=== PATIENT | male | born 1965 | race Caucasian/White ===

== ENCOUNTER → 2016-08-07 | Outpatient (CLI) | payer OTHER ==
[2016-08-07 06:59] LABS: MEAN CORPUSCULAR HEMOGLOBIN 31.3 pg (27.0-33.0); MEAN CORPUSCULAR HGB CONC 35.4 g/dl (32.0-36.5); MEAN CORPUSCULAR VOLUME 88.3 fl (80.0-96.0); RED CELL DISTRIBUTION WIDTH 12.5 % (11.5-14.5); WHITE BLOOD COUNT 6.2 K/mm3 (4.0-10.0)
[2016-08-07 07:26] LABS: ALBUMIN 4.1 GM/DL (3.2-5.2); ALBUMIN/GLOBULIN RATIO 1.14 (1.00-1.93); ALKALINE PHOSPHATASE 71 U/L (45-117); ALT/SGPT 88 U/L (12-78); ANION GAP 7 MEQ/L (8-16); AST/SGOT 61 U/L (15-37); BILIRUBIN,TOTAL 0.8 MG/DL (0.2-1.0); BLOOD UREA NITROGEN 13 MG/DL (7-18); CALCIUM LEVEL 8.7 MG/DL (8.5-10.1); CARBON DIOXIDE LEVEL 29 MEQ/L (21-32); CHLORIDE LEVEL 102 MEQ/L (98-107); CHOLESTEROL LEVEL 162 MG/DL (<200); CREATININE FOR GFR 1.13 MG/DL (0.70-1.30); GLOMERULAR FILTRATION RATE > 60.0 (>56); GLUCOSE, FASTING 107 MG/DL (70-105); SODIUM LEVEL 138 MEQ/L (136-145); TOTAL PROTEIN 7.7 GM/DL (6.4-8.2); TRIGLYCERIDES LEVEL 257 MG/DL (<150)
== END ==
LOC: M LAB 06:37
PROVIDERS: ATTEND Nurse Practitioner Family
DX: E78.5 Hyperlipidemia, unspecified (principal)

== ENCOUNTER → 2017-03-11 | Outpatient (CLI) | payer OTHER ==
[2017-03-11 07:11] LABS: HEMATOCRIT 48.9 % (42.0-52.0); HEMOGLOBIN 16.8 g/dl (14.0-18.0); MEAN CORPUSCULAR HEMOGLOBIN 29.7 pg (27.0-33.0); MEAN CORPUSCULAR HGB CONC 34.4 g/dl (32.0-36.5); MEAN CORPUSCULAR VOLUME 86.4 fl (80.0-96.0); PLATELET COUNT, AUTOMATED 215 10^3/uL (150-450); RED BLOOD COUNT 5.66 10^6/uL (4.30-6.10); RED CELL DISTRIBUTION WIDTH 12.6 % (11.5-14.5)
[2017-03-11 07:36] LABS: ALBUMIN 4.1 GM/DL (3.2-5.2); ALBUMIN/GLOBULIN RATIO 1.08 (1.00-1.93); ALKALINE PHOSPHATASE 60 U/L (45-117); ALT/SGPT 92 U/L (12-78); ANION GAP 5 MEQ/L (8-16); AST/SGOT 52 U/L (7-37); BILIRUBIN,DIRECT 0.1 MG/DL (0.0-0.2); BILIRUBIN,TOTAL 0.6 MG/DL (0.2-1.0); BLOOD UREA NITROGEN 15 MG/DL (7-18); CARBON DIOXIDE LEVEL 31 MEQ/L (21-32); CHLORIDE LEVEL 103 MEQ/L (98-107); CHOLESTEROL LEVEL 169 MG/DL (<200); CREATININE FOR GFR 1.18 MG/DL (0.70-1.30); GLOMERULAR FILTRATION RATE > 60.0 (>56); GLUCOSE, FASTING 109 MG/DL (70-105); HDL CHOLESTEROL 34 MG/DL (>40); LDL CHOLESTEROL 83.8 MG/DL (<100); NON-HDL-C 135 MG/DL; POTASSIUM SERUM 4.2 MEQ/L (3.5-5.1); SODIUM LEVEL 139 MEQ/L (136-145); TOTAL PROTEIN 7.9 GM/DL (6.4-8.2); TRIGLYCERIDES LEVEL 256 MG/DL (<150); URIC ACID 6.6 MG/DL (3.5-7.2)
== END ==
LOC: M LAB 06:39
DX: I10 Essential (primary) hypertension (principal); R79.89 Other specified abnormal findings of blood chemistry; M10.9 Gout, unspecified
CPT/HCPCS: 84550

== ENCOUNTER 2017-05-12 07:10 | Emergency (ER) | payer OTHER | END 2017-05-12 08:50 | disposition home or self-care (01) | LOC: M ED 07:10 | DX: S46.812A Strain of other muscles, fascia and tendons at shoulder and upper arm level, left arm, initial encounter (principal); X58.XXXA Exposure to other specified factors, initial encounter; Y92.89 Other specified places as the place of occurrence of the external cause; R20.2 Paresthesia of skin; M10.9 Gout, unspecified; I10 Essential (primary) hypertension; E78.00 Pure hypercholesterolemia, unspecified; Z79.899 Other long term (current) drug therapy | CPT/HCPCS: 93005 ==

== ENCOUNTER → 2017-10-15 | Outpatient (REF) | payer OTHER ==
[2017-10-15 14:48] LABS: ANION GAP 8 MEQ/L (8-16); AST/SGOT 42 U/L (7-37); BLOOD UREA NITROGEN 11 MG/DL (7-18); CALCIUM LEVEL 8.9 MG/DL (8.5-10.1); CARBON DIOXIDE LEVEL 24 MEQ/L (21-32); CHLORIDE LEVEL 107 MEQ/L (98-107); CREATININE FOR GFR 0.96 MG/DL (0.70-1.30); GLOMERULAR FILTRATION RATE > 60.0 (>56); GLUCOSE, FASTING 107 MG/DL (70-100); POTASSIUM SERUM 4.1 MEQ/L (3.5-5.1); SODIUM LEVEL 139 MEQ/L (136-145)
[2017-10-15 14:49] LABS: ALBUMIN 3.8 GM/DL (3.2-5.2); ALBUMIN/GLOBULIN RATIO 1.09 (1.00-1.93); ALKALINE PHOSPHATASE 74 U/L (45-117); ALT/SGPT 75 U/L (12-78); BILIRUBIN,TOTAL 0.7 MG/DL (0.2-1.0); CHOLESTEROL LEVEL 167 MG/DL (<200); CHOLESTEROL RISK RATIO 5.758 (<5); HDL CHOLESTEROL 29 MG/DL (>40); NON-HDL-C 138 MG/DL; PSA SCREENING 1.47 NG/ML (< 4.0); TOTAL PROTEIN 7.3 GM/DL (6.4-8.2); TRIGLYCERIDES LEVEL 240 MG/DL (<150)
[2017-10-15 19:44] LABS: VITAMIN B12 LEVEL 601 PG/ML
[2017-10-16 11:02] LABS: HEPATITIS C VIRUS ABY INDEX 0.1 INDEX (<0.8)
== END ==
LOC: M LAB REF 12:51
DX: R79.89 Other specified abnormal findings of blood chemistry (principal); E78.5 Hyperlipidemia, unspecified; Z12.5 Encounter for screening for malignant neoplasm of prostate
CPT/HCPCS: 82746

== ENCOUNTER → 2018-05-17 | Outpatient (REF) | payer OTHER ==
[~2018-05-17] MED LIST: ALLO100T; ATOR40TA75; LISI10TA4; PRED20TA PO; ROBA500T PO
[2018-05-17 11:38] LABS: INFLUENZA A AMPLIFICATION POSITIVE (NEGATIVE); INFLUENZA B AMPLIFICATION NEGATIVE (NEGATIVE)
== END ==
LOC: M LAB REF 10:30
PROVIDERS: ATTEND Physician Assistant Medical
DX: Z11.59 Encounter for screening for other viral diseases (principal)

== ENCOUNTER 2018-10-05 01:10 | Emergency (ER) | payer OTHER ==
[~2018-10-05] VITALS: Ht 177.8 cm; Wt 118.2 kg
[2018-10-05 01:53] LABS: HEMATOCRIT 47.9 % (42.0-52.0); HEMOGLOBIN 16.5 g/dl (13.5-17.5); MEAN CORPUSCULAR HGB CONC 34.4 g/dl (32.0-36.5); MEAN CORPUSCULAR VOLUME 89.9 fl (80.0-96.0); PLATELET COUNT, AUTOMATED 176 10^3/uL (150-450); RED BLOOD COUNT 5.33 10^6/uL (4.30-6.10); WHITE BLOOD COUNT 5.7 10^3/uL (4.0-10.0)
[2018-10-05 02:01] LABS: APPEARANCE, URINE HAZY (CLEAR); BACTERIA, URINE AUTO NEGATIVE (NEGATIVE); BILIRUBIN, URINE AUTO NEGATIVE (NEGATIVE); BLOOD, URINE BLOOD 3+ (NEGATIVE); COLOR, URINE YELLOW (YELLOW); GLUCOSE, URINE (UA) AUTO NEGATIVE (NEGATIVE); KETONE, URINE AUTO NEGATIVE (NEGATIVE); LEUKOCYTE ESTERASE, URINE AUTO NEGATIVE (NEGATIVE); MUCUS, URINE SMALL (NEGATIVE); NITRITE, URINE AUTO NEGATIVE (NEGATIVE); PROTEIN, URINE AUTO NEGATIVE (NEGATIVE); RBC, URINE AUTO TNTC /HPF (0-3); SQUAMOUS EPITHELIAL CELL UR AU 0 /HPF (0-6); UROBILINOGEN, URINE AUTO 0.2 mg/dL (0.0-2.0); WBC, URINE AUTO 1 /HPF (0-3)
[2018-10-05 02:23] LABS: ALBUMIN 3.9 GM/DL (3.2-5.2); ALT/SGPT 72 U/L (12-78); BILIRUBIN,TOTAL 0.3 MG/DL (0.2-1.0); BLOOD UREA NITROGEN 15 MG/DL (7-18); CALCIUM LEVEL 8.8 MG/DL (8.5-10.1); CARBON DIOXIDE LEVEL 25 MEQ/L (21-32); CHLORIDE LEVEL 107 MEQ/L (98-107); CREATININE FOR GFR 1.26 MG/DL (0.70-1.30); GLOMERULAR FILTRATION RATE > 60.0 (>56); GLUCOSE, FASTING 146 MG/DL (70-100); POTASSIUM SERUM 3.7 MEQ/L (3.5-5.1); SODIUM LEVEL 140 MEQ/L (136-145); TOTAL PROTEIN 7.6 GM/DL (6.4-8.2)
--- NOTE | 2018-10-05 04:50 | REPVR ---
EXAM: CT Abdomen and Pelvis Without Contrast EXAM DATE/TIME: 10/05/2018 2:16 AM CLINICAL HISTORY: 53 years old, male; Abdominal pain; Flank; Right; Additional info: Right flank/groin pain with hematuria TECHNIQUE: Imaging protocol: Axial computed tomography images of the abdomen and pelvis without contrast. Coronal and sagittal reformatted images were created and reviewed. Radiation optimization: All CT scans at this facility use at least one of these dose optimization techniques: automated exposure control; mA and/or kV adjustment per patient size (includes targeted exams where dose is matched to clinical indication); or iterative reconstruction. COMPARISON: GALLBLADDER US 07/23/2015 8:14 AM FINDINGS: Lungs: The visualized portions of the lung bases are normal. Liver: There are no focal liver lesions present. Gallbladder and bile ducts: The gallbladder is contracted, limiting its assessment. No definite stones identified. There is no biliary ductal dilation. Pancreas: The pancreas is normal with no ductal dilation. Spleen: The spleen is normal. Adrenals: The adrenal glands are normal. Kidneys and ureters: There is mild right hydronephrosis. There is a 4 mm distal right ureter stone within 1-2 cm of the bladder, which seems to be causing obstruction. There is right-sided landon-ureteral stranding. No significant perinephric stranding is seen. The left ureter appears normal with no stones or hydronephrosis. Stomach and bowel: Mild diverticulosis is present in the distal colon. There is no dilation or thickening of the colon. The small bowel appears unremarkable. Appendix: A normal appendix is identified. Intraperitoneal space: There is no evidence of free intraperitoneal or pelvic fluid. There is no free intraperitoneal air. Vasculature: The aorta demonstrates mild atherosclerotic calcification. Lymph nodes: No lymphadenopathy is seen. Bladder: There is a distortion of the bladder anteriorly on the right side, and extension of the bladder into a right inguinal hernia. There is mild thickening of the bladder wall anteriorly and toward the right side. The portion of the bladder extending into the hernia sac is mostly collapsed, limiting assessment of the wall thickness in that portion. Reproductive: The prostate gland and seminal vesicles are normal. Bones/joints: No suspicious osseous lesions. No acute fractures or dislocations. Relatively high density of the osseous structures diffusely is noted, possibly a mild diffuse osseous sclerosis. Soft tissues: There is a right inguinal hernia which contains a portion of the bladder. See Bladder findings. IMPRESSION: 1. Mild right-sided hydronephrosis with an obstructing 4 mm distal right ureter stone. 2. Right inguinal hernia with herniation of the bladder into the hernia sac. Mild thickening of the bladder wall anteriorly on the right side. 3. Relatively high density of the osseous structures diffusely, raising a possibility of metabolic bone disease. Electronically signed by: Divine Adames On 10/05/2018 04:50:08 AM
[2018-10-05] MEDS ORDERED: KETOROLAC 30 MG/ML VIAL (J1885) IV ONE (06:00)
[2018-10-05] MEDS ORDERED: TAMSULOSIN 0.4 MG CAP PO ONE (06:00)
[2018-10-05] MEDS ORDERED: NS 1,000 ML IV ONE (06:00)
[2018-10-05] MEDS ORDERED: FLOM0.4C39 PO (06:00)
[2018-10-05 07:04] VITALS: BP 156/99
--- NOTE | 2018-10-11 19:32 | ED PDOC ---
Post-Departure Follow-Up certified letter sent to pt re formal read of ct - see report - ?? metastatic l esion. please obtain pcp name and have pt fu there. if no pcp arrange fu at [facility] and fax report there Bj Giron MD Oct 11, 2018 19:32
== END 2018-10-05 07:13 | disposition home or self-care (01) ==
LOC: M ED 01:10
DX: N20.1 Calculus of ureter (principal); K40.30 Unilateral inguinal hernia, with obstruction, without gangrene, not specified as recurrent; I10 Essential (primary) hypertension; Z79.899 Other long term (current) drug therapy
CPT/HCPCS: 74176; 80053; 81001; 85027; 96374; 99284; J1885

== ENCOUNTER → 2018-11-17 | Outpatient (REF) | payer OTHER ==
[~2018-11-17] MED LIST changes: +FLOM0.4C39 PO
[2018-11-17 17:48] LABS: INR 1.01
[2018-11-17 17:50] LABS: BASO % 0.3 % (0.0-1.0); EOS # 0.1 10^3/uL (0.0-0.5); EOS % 2.2 % (0.0-3.0); HEMATOCRIT 45.9 % (42.0-52.0); HEMOGLOBIN 15.7 g/dl (13.5-17.5); LYMPH % 34.2 % (24.0-44.0); MEAN CORPUSCULAR HEMOGLOBIN 29.7 pg (27.0-33.0); MEAN CORPUSCULAR HGB CONC 34.2 g/dl (32.0-36.5); MEAN CORPUSCULAR VOLUME 86.9 fl (80.0-96.0); MONO # 0.7 10^3/uL (0.0-0.8); MONO % 10.9 % (0.0-5.0); NEUTROPHILS # 3.1 10^3/uL (1.5-8.5); NEUTROPHILS % 52.1 % (36.0-66.0); PLATELET COUNT, AUTOMATED 216 10^3/uL (150-450); RED BLOOD COUNT 5.28 10^6/uL (4.30-6.10)
[2018-11-17 17:51] LABS: ALBUMIN 4.4 GM/DL (3.2-5.2); ALT/SGPT 70 U/L (12-78); BILIRUBIN,TOTAL 0.5 MG/DL (0.2-1.0); BLOOD UREA NITROGEN 12 MG/DL (7-18); CALCIUM LEVEL 9.1 MG/DL (8.5-10.1); CARBON DIOXIDE LEVEL 23 MEQ/L (21-32); CHLORIDE LEVEL 105 MEQ/L (98-107); CHOLESTEROL LEVEL 256 MG/DL (<200); CREATININE FOR GFR 1.17 MG/DL (0.70-1.30); GLOMERULAR FILTRATION RATE > 60.0 (>56); GLUCOSE, FASTING 91 MG/DL (70-100); HDL CHOLESTEROL 32 MG/DL (>40); LDL CHOLESTEROL 155 MG/DL (<100); NON-HDL-C 224 MG/DL; POTASSIUM SERUM 3.9 MEQ/L (3.5-5.1); SODIUM LEVEL 138 MEQ/L (136-145); TOTAL PROTEIN 7.7 GM/DL (6.4-8.2); TRIGLYCERIDES LEVEL 347 MG/DL (<150); URIC ACID 7.8 MG/DL (3.5-7.2)
== END ==
LOC: M LAB REF 16:32
PROVIDERS: ATTEND Nurse Practitioner Adult Health
DX: Z01.818 Encounter for other preprocedural examination (principal); Z12.5 Encounter for screening for malignant neoplasm of prostate; M10.9 Gout, unspecified
CPT/HCPCS: 80053; 80061; 84550; 85025; 85610; G0103

== ENCOUNTER 2018-12-14 12:23 | Day surgery (SDC) | payer OTHER ==
[~2018-12-14] VITALS: Ht 177.8 cm; Wt 109.0 kg
[~2018-12-14 12:23] MED LIST changes: -ALLO100T; +ALLO100T PO; +ATOR1TAB19 PO; +LIDOCAINE 1% MDV 20ML VIAL SQ PRN; -LISI10TA4; +LISI10TA4 PO; +LR 1,000 ML IV ONE; +SM P99TA PO
[2018-12-14] MEDS ORDERED: LIDOCAINE 2% INJ 100 MG/5 ML SDV (FOR ANES.) As Ordered ONE (12:58)
[2018-12-14] MEDS ORDERED: PROPOFOL 200 MG/20 ML VIAL As Ordered ONE (12:58)
[2018-12-14] MEDS ORDERED: ROCURONIUM BROMIDE 50 MG/5 ML VIAL As Ordered ONE ×2 (12:58→15:35)
[2018-12-14] MEDS ORDERED: PRED10PA PO (13:33)
[2018-12-14] MEDS ORDERED: MIDAZOLAM INJ 2 MG/2 ML VIAL (J2250) As Ordered ONE (13:55)
[2018-12-14] MEDS ORDERED: dexameTHASONE 4 MG/ML 1ML VIAL (J1100) As Ordered ONE (13:55)
[2018-12-14] MEDS ORDERED: fentaNYL 250 MCG/5 ML INJECTION (J3010) As Ordered ONE (13:55)
[2018-12-14] MEDS ORDERED: BUPIVACAINE HCL 0.25% 30 ML VIAL As Ordered ONE (14:37)
[2018-12-14] MEDS ORDERED: ACETAMINOPHEN 1000MG 100ML IV BTL (OFIRMEV) (J0131 PER 10MG) As Ordered ONE (15:52)
[2018-12-14] MEDS ORDERED: ONDANSETRON 4MG/2ML VIAL (J2405) As Ordered ONE ×2 (15:52→17:58)
[2018-12-14] MEDS ORDERED: KETOROLAC 60 MG/2 ML VIAL (J1885) As Ordered ONE (15:52)
[2018-12-14] MEDS ORDERED: SUGAMMADEX SODIUM 500 MG/5 ML VIAL (BRIDION) As Ordered ONE (17:05)
[2018-12-14] MEDS ORDERED: NORC1TAB7 PO (17:35)
[2018-12-14] MEDS ORDERED: NORCO, ANEXSIA 5/325MG TABLET (HYDROcodone/ACETAMINOPHEN) As Ordered ONE (17:57)
[2018-12-14] MEDS ORDERED: NORCO, ANEXSIA 5/325MG TABLET (HYDROcodone/ACETAMINOPHEN) PO PRN ×2 (18:00→18:15)
[2018-12-14] MEDS ORDERED: ONDANSETRON 4MG/2ML VIAL (J2405) IV PRN (18:00)
[2018-12-14] MEDS ORDERED: fentaNYL 100 MCG/2 ML INJECTION (J3010) IV PRN (18:00)
[2018-12-14] MEDS ORDERED: ACETAMINOPHEN TAB 650MG DOSE (2X325MG) PO PRN ×2 (18:15)
[2018-12-14] MEDS ORDERED: IBUPROFEN 600 MG TAB PO PRN (18:15)
[2018-12-14] MEDS ORDERED: METOCLOPRAMIDE INJ 10MG/2ML VIAL (J2765) As Ordered ONE (18:20)
[2018-12-14] MEDS ORDERED: METOCLOPRAMIDE INJ 10MG/2ML VIAL (J2765) IV SCH (18:30)
[2018-12-14 18:55] VITALS: BP 135/86
--- NOTE | 2018-12-15 10:12 | RO ---
DATE OF PROCEDURE: 12/14/2018 PREOPERATIVE DIAGNOSIS: Right inguinal hernia. POSTOPERATIVE DIAGNOSIS: Direct right inguinal hernia. PROCEDURE PERFORMED: Robotic-assisted laparoscopic right inguinal herniorrhaphy with mesh. The mesh utilized was a Bard right-sided large 3DMax light mesh, reference code [id number], lot number [id number]. SURGEON: Dr. Santana ASSISTANT [employer] COACH: ANESTHESIA: General. INDICATIONS FOR THE PROCEDURE: Patient is a 53-year-old man who noted a small bulge in the right inguinal area. He underwent evaluation with a CT scan, which showed part of the bladder protruding into his right inguinal hernia. He is now for a right inguinal herniorrhaphy. OPERATIVE PROCEDURE: The patient was brought to the operating room and placed supine on the operating table. He was placed under general endotracheal anesthesia. The patient's abdomen and groins were prepped and draped in a sterile fashion. A short transverse incision was made approximately 5 cm above the umbilicus and slightly to the left of the midline. The Veress needle was inserted and after a positive hanging drop test the abdomen was insufflated with carbon dioxide gas without difficulty. An 8 mm robotic Visiport was placed over a 5 mm scope and advanced through the abdominal wall without difficulty. Initial examination showed normal-appearing liver and gallbladder. Visualized loops of the small and large bowel appeared normal. There was a small right inguinal hernia defect identified and no evidence of a hernia on the left. The patient was tilted to a Trendelenburg position. A second 8 mm port was placed approximately 8-10 cm lateral on the left side of the abdomen and a third 8 mm port was placed approximately 8-10 cm to the right of the initial port. The [employer] patient cart was brought into position and the endoscope port was docked. Targeting took place and the additional ports were then docked as well. Cauterizing scissors were placed in the right-sided port and a bipolar forceps was placed in the left. I then moved to the control console to proceed with the robotic portion of the procedure. Inspection more closely revealed that there was a large amount of fibrofatty tissue and possibly a portion of the bladder that were herniated into what appeared to be actually a moderately large probably direct hernia defect on the right. An arcuate incision was made in the peritoneum of the anterior abdominal wall above the hernia. A peritoneal flap was then developed using a combination of blunt and cautery dissection. This included a very thin layer of underlying fascia. The hernia was reduced by traction and noted to have some adhesions up into the hernia. It was necessary to lyse some attachments until the hernia sac would remain reduced back into the abdomen. With further dissection the spermatic cord structures were identified coursing to the external ring, which appeared to be slightly lateral to the hernia defect consistent with the hernia being a direct hernia. The peritoneal reflection was dissected away from the spermatic vessels. In the course of doing so an opening was created through the peritoneum and it was noted for later closure. Once the peritoneal flap had been adequately dissected, a Bard 3DMax light mesh was selected. This was for the right side and a large mesh. This was inserted into the abdomen and placed into the preperitoneal space. This appeared to nicely cover the area of interest. Two sutures of #2-0 Vicryl were placed at the inferior medial end of the mesh suturing this to the underlying fascia. Another single suture was placed in the outer upper aspect of the mesh to tack this in place. I would note that several fragments of fibrofatty tissue had been removed from the preperitoneal space to allow the mesh to lie flat against the fascia more closely. These were placed intraperitoneally for later removal. The peritoneal flap was then closed with a running #2-0 V-Loc suture. I then addressed the opening through the peritoneum and this was closed with a running suture of #2-0 Vicryl. An Endopouch was inserted and the fragments of fibrofatty tissue were placed within the pouch for removal. The patient was then returned to a flat position. The robotic instruments were removed. I returned to the patient's side. The abdomen was deflated and the trocars were all removed. The Endopouch was removed through the right-sided trocar site after withdrawing the fibrofatty tissue from within using a Sindi clamp. The incisions were closed with buried Vicryl sutures. 0.25% Marcaine was infiltrated about all of the trocar sites and Steri-Strips were applied followed by light dressings. The patient tolerated the procedure well without apparent complication. He was awakened in the operating room, extubated and moved to the recovery room in stable condition.
== END 2018-12-14 19:15 | disposition home or self-care (01) ==
LOC: M SDC 12:23
PROVIDERS: ATTEND Surgery
DX: K40.90 Unilateral inguinal hernia, without obstruction or gangrene, not specified as recurrent (principal); G47.30 Sleep apnea, unspecified; I10 Essential (primary) hypertension; E78.5 Hyperlipidemia, unspecified; Z79.899 Other long term (current) drug therapy
CPT/HCPCS: 49650; C1781; J0131; J1100; J1885; J2250; J2405; J2765; J3010

== ENCOUNTER → 2019-01-05 | Outpatient (CLI) | payer OTHER ==
[~2019-01-05] MED LIST changes: -LIDOCAINE 1% MDV 20ML VIAL SQ PRN; -LR 1,000 ML IV ONE; +NORC1TAB7 PO; +PRED10PA PO
--- NOTE | 2019-01-05 16:12 | REP ---
Clinical: Groin pain. Technique: Real time ultrasound examination using linear high frequency transducer. Findings: The patient gives a history of right inguinal hernia repair. Directed ultrasound examination of the right groin at the point of maximal tenderness demonstrates an ovoid complex multi septated avascular collection measuring 4.2 x 2.4 x 3.3 cm. No residual hernia identified. Impression: Complex ovoid collection at the site of prior surgery may represent hematoma or seroma. Clinical correlation and follow up is recommended. Electronically Signed by Jesus Ac MD 01/05/2019 04:04 P
== END ==
LOC: M RAD 14:38
PROVIDERS: ATTEND Surgery
DX: R10.31 Right lower quadrant pain (principal); R60.0 Localized edema

== ENCOUNTER → 2019-12-12 | Outpatient (REF) | payer OTHER ==
[2019-12-12 18:03] LABS: BASO % 0.6 % (0.0-1.0); EOS # 0.1 10^3/uL (0.0-0.5); EOS % 1.6 % (0.0-3.0); HEMATOCRIT 51.2 % (42.0-52.0); HEMOGLOBIN 17.2 g/dl (13.5-17.5); LYMPH # 1.9 10^3/uL (1.5-5.0); LYMPH % 37.6 % (24.0-44.0); MEAN CORPUSCULAR HEMOGLOBIN 29.9 pg (27.0-33.0); MEAN CORPUSCULAR HGB CONC 33.6 g/dl (32.0-36.5); MONO # 0.7 10^3/uL (0.0-0.8); MONO % 13.6 % (0.0-5.0); NEUTROPHILS # 2.4 10^3/uL (1.5-8.5); NEUTROPHILS % 46.2 % (36.0-66.0); PLATELET COUNT, AUTOMATED 237 10^3/uL (150-450); RED BLOOD COUNT 5.75 10^6/uL (4.30-6.10); WHITE BLOOD COUNT 5.1 10^3/uL (4.0-10.0)
[2019-12-12 18:31] LABS: ALBUMIN 4.2 GM/DL (3.2-5.2); ALT/SGPT 90 U/L (12-78); BILIRUBIN,TOTAL 0.4 MG/DL (0.2-1.0); BLOOD UREA NITROGEN 11 MG/DL (7-18); CALCIUM LEVEL 9.1 MG/DL (8.5-10.1); CARBON DIOXIDE LEVEL 25 MEQ/L (21-32); CHLORIDE LEVEL 105 MEQ/L (98-107); CHOLESTEROL LEVEL 256 MG/DL (<200); CREATININE FOR GFR 1.05 MG/DL (0.70-1.30); GLOMERULAR FILTRATION RATE > 60.0 (>56); GLUCOSE, FASTING 112 MG/DL (70-100); HDL CHOLESTEROL 32 MG/DL (>40); LDL CHOLESTEROL 151 MG/DL (<100); NON-HDL-C 224 MG/DL; POTASSIUM SERUM 4.4 MEQ/L (3.5-5.1); SODIUM LEVEL 137 MEQ/L (136-145); TOTAL PROTEIN 7.6 GM/DL (6.4-8.2); TRIGLYCERIDES LEVEL 367 MG/DL (<150); URIC ACID 7.1 MG/DL (3.5-7.2)
[2019-12-12 18:47] LABS: HEMOGLOBIN A1c 6.1 %
== END ==
LOC: M LAB REF 16:17
PROVIDERS: ATTEND Physician Assistant
DX: K76.0 Fatty (change of) liver, not elsewhere classified (principal); R79.89 Other specified abnormal findings of blood chemistry; E66.09 Other obesity due to excess calories; I10 Essential (primary) hypertension; M10.9 Gout, unspecified

== ENCOUNTER → 2020-03-08 | Outpatient (CLI) | payer SELFPAY | LOC: M LABSMTC 12:31 | PROVIDERS: ATTEND Pediatrics | DX: Z20.828 Contact with and (suspected) exposure to other viral communicable diseases (principal) ==

== ENCOUNTER → 2020-05-04 | Outpatient (CLI) | payer OTHER ==
[~2020-05-04] MED LIST changes: +LISI10TA22 PO; -LISI10TA4 PO
== END ==
LOC: M LABSMTC 14:13
PROVIDERS: ATTEND Anesthesiology
DX: Z01.812 Encounter for preprocedural laboratory examination (principal); Z20.822 Contact with and (suspected) exposure to COVID-19

== ENCOUNTER 2020-05-09 09:48 | Day surgery (SDC) | payer OTHER ==
[~2020-05-09] VITALS: Ht 177.8 cm; Wt 109.3 kg
[~2020-05-09 09:48] MED LIST changes: +NS 1,000 ML IV ONE
[2020-05-09] MEDS ORDERED: LIDOCAINE 2% 100MG/5ML SDV (FOR ANES.) As Ordered ONE (11:42)
[2020-05-09] MEDS ORDERED: propofoL 500 MG/50 ML VIAL As Ordered ONE (11:42)
--- NOTE | 2020-05-09 11:54 | ROOR ---
Patient Name: Quinten Talbert Procedure Date: 05/09/2020 11:25 AM Date of : 1965 Age: 54 Room: [facility] Gender: Male Note Status: Finalized Procedure: Total Colonoscopy to Cecum + Cold Snare Polypectomy + Hemoclips Indications: High risk colon cancer surveillance: Personal history of colonic polyps Providers: Sarthak Jefferson MD Referring MD: Flex Del Angel Requesting Provider: Medicines: Monitored Anesthesia Care Complications: No immediate complications. Procedure: Pre-Anesthesia Assessment: - The heart rate, respiratory rate, oxygen saturations, blood pressure, adequacy of pulmonary ventilation, and response to care were monitored throughout the procedure. The Colonoscope was introduced through the anus and advanced to the cecum, identified by appendiceal orifice and ileocecal valve. The colonoscopy was performed without difficulty. The patient tolerated the procedure well. The quality of the bowel preparation was excellent. Findings: The perianal and digital rectal examinations were normal. Non-bleeding internal hemorrhoids were found during retroflexion. The hemorrhoids were small and Grade I (internal hemorrhoids that do not prolapse). Multiple small and large-mouthed diverticula were found in the recto-sigmoid colon, sigmoid colon and descending colon. Three semi-pedunculated polyps were found in the ascending colon. The polyps were medium in size. These polyps were removed with a cold snare. Polyp resection was incomplete. The resected tissue was retrieved. To prevent bleeding after the polypectomy, three hemostatic clips were successfully placed (MR conditional). There was no bleeding at the end of the procedure. The exam was otherwise without abnormality on direct and retroflexion views. Impression: - Non-bleeding internal hemorrhoids. - Diverticulosis in the recto-sigmoid colon, in the sigmoid colon and in the descending colon. - Three medium polyps in the ascending colon, removed with a cold snare. Incomplete resection. Resected tissue retrieved. Clips (MR conditional) were placed. - The examination was otherwise normal on direct and retroflexion views. - The exam was otherwise normal to the cecum. Recommendation: - Patient has a contact number available for emergencies. The signs and symptoms of potential delayed complications were discussed with the patient. Return to normal activities tomorrow. Written discharge instructions were provided to the patient. - High fiber diet. - Discharge patient to home. - Continue present medications. - Await pathology results. - Telephone GI clinic for pathology results in 1 week. - Repeat colonoscopy for surveillance based on pathology results. - Return to referring physician. - The findings and recommendations were discussed with the patient. Procedure Code(s): --- Professional --- 45331, Colonoscopy, flexible; with removal of tumor(s), polyp(s), or other lesion(s) by snare technique Diagnosis Code(s): --- Professional --- Z86.010, Personal history of colonic polyps K64.0, First degree hemorrhoids K63.5, Polyp of colon K57.30, Diverticulosis of large intestine without perforation or abscess without bleeding CPT copyright 2019 [employer]. All rights reserved. The codes documented in this report are preliminary and upon cartridge assembler review may be revised to meet current compliance requirements. Sarthak Jefferson MD Sarthak Jefferson MD 05/09/2020 11:54:16 AM Electronically signed by Sarthak Jefferson MD Number of Addenda: 0 Note Initiated On: 05/09/2020 11:25 AM Estimated Blood Loss: Estimated blood loss: none.
[2020-05-09 12:13] VITALS: BP 114/73
== END 2020-05-09 12:15 | disposition home or self-care (01) ==
LOC: M OPP 09:48
PROVIDERS: ATTEND Internal Medicine Gastroenterology
DX: Z12.11 Encounter for screening for malignant neoplasm of colon (principal); Z86.010 Personal history of colon polyps; K63.5 Polyp of colon; K57.30 Diverticulosis of large intestine without perforation or abscess without bleeding; K64.0 First degree hemorrhoids; I10 Essential (primary) hypertension; G47.30 Sleep apnea, unspecified; Z79.899 Other long term (current) drug therapy

== ENCOUNTER 2021-06-28 22:16 | Emergency (ER) | payer OTHER ==
[~2021-06-28] VITALS: Ht 177.8 cm; Wt 109.1 kg
[~2021-06-28 22:16] MED LIST changes: +GNP99TAB3 PO; -NS 1,000 ML IV ONE; -SM P99TA PO
[2021-06-29] MEDS ORDERED: NORCO, ANEXSIA 5/325MG TABLET (HYDROcodone/ACETAMINOPHEN) PO ONE (01:40)
[2021-06-29] MEDS ORDERED: BOOSTRIX/ADACEL VACCINE (DIPHTH/PERTUSS/ACELL/TETANUS) 0.5ML SYR IM ONE (01:40)
[2021-06-29] MEDS ORDERED: MORPHINE 2 MG/ML 1ML VIAL IV ONE (01:50)
[2021-06-29] MEDS ORDERED: AMPICILLIN SOD/SULBACTAM SOD 3 GM in D5W MINI-BAG PLUS 100 ML IV ONE (01:50)
[2021-06-29] MEDS ORDERED: ONDANSETRON 4MG/2ML VIAL IV ONE (01:50)
[2021-06-29 03:22] LABS: RSV AMPLIFICATION NEGATIVE (NEGATIVE)
[2021-06-29 03:33] VITALS: BP 152/106
== END 2021-06-29 03:37 | disposition short-term general hospital (02) ==
LOC: M ED 22:16
DX: S01.311A Laceration without foreign body of right ear, initial encounter (principal); Y04.8XXA Assault by other bodily force, initial encounter; Y92.89 Other specified places as the place of occurrence of the external cause; Y93.9 Activity, unspecified; Y99.9 Unspecified external cause status; I10 Essential (primary) hypertension; E03.9 Hypothyroidism, unspecified; M10.9 Gout, unspecified; Z79.899 Other long term (current) drug therapy
CPT/HCPCS: 70450; 87631; 90471; 90715; 96360; 96361; 96375; 99284; J0295; J2270; J2405

== ENCOUNTER 2023-10-08 00:14 | Inpatient (IN) | payer OTHER ==
[~2023-10-08] VITALS: Ht 177.8 cm; Wt 109.7 kg
[2023-10-08 00:42] LABS: BASO % 0.5 % (0.0-1.0); EOS # 0.2 10^3/uL (0.0-0.5); EOS % 1.8 % (0.0-3.0); HEMATOCRIT 48.5 % (42.0-52.0); HEMOGLOBIN 16.5 g/dl (13.5-17.5); LYMPH # 3.9 10^3/uL (1.5-5.0); LYMPH % 48.4 % (24.0-44.0); MEAN CORPUSCULAR HEMOGLOBIN 30.2 pg (27.0-33.0); MEAN CORPUSCULAR VOLUME 88.8 fl (80.0-96.0); MONO # 1.2 10^3/uL (0.0-0.8); MONO % 14.3 % (2.0-8.0); NEUTROPHILS # 2.8 10^3/uL (1.5-8.5); NEUTROPHILS % 34.8 % (36.0-66.0); PLATELET COUNT, AUTOMATED 219 10^3/uL (150-450); RED BLOOD COUNT 5.46 10^6/uL (4.30-6.10); WHITE BLOOD COUNT 8.1 10^3/uL (4.0-10.0)
[2023-10-08] MEDS: MIDAZOLAM INJ 2MG/2ML VIAL IV ONE (00:50)
[2023-10-08 01:24] LABS: CK-MB VALUE MASS 2.6 NG/ML (<3.6)
[2023-10-08 01:26] LABS: ALBUMIN 4.2 G/DL (3.2-5.2); ALKALINE PHOSPHATASE 49 U/L (46-116); ALT/SGPT 53 U/L (7.0-40); AST/SGOT 36 U/L (<34); BILIRUBIN,DIRECT 0.1 MG/DL (<0.4); BILIRUBIN,TOTAL 0.6 MG/DL (0.3-1.2); BLOOD UREA NITROGEN 17 MG/DL (9-23); CALCIUM LEVEL 9.5 MG/DL (8.5-10.1); CARBON DIOXIDE LEVEL 28 MMOL/L (20-31); CHLORIDE LEVEL 103 MMOL/L (98-107); CREATININE FOR GFR 1.09 MG/DL (0.70-1.30); GLOMERULAR FILTRATION RATE > 60.0 (>56); GLUCOSE, FASTING 165 MG/DL (60-100); POTASSIUM SERUM 3.7 MMOL/L (3.5-5.1); SODIUM LEVEL 138 MMOL/L (136-145); TOTAL PROTEIN 7.3 G/DL (5.7-8.2)
[2023-10-08 01:28] LABS: CPK CREATINE PHOSPHOKINASE 292 U/L (46-171); MB/CK RELATIVE INDEX 0.89 (< OR =4)
[2023-10-08 01:53] LABS: MB/CK RELATIVE INDEX 0.73 (< OR =4)
[2023-10-08] MEDS: cefTRIAXone SOD 2 GM in D5W MINI-BAG PLUS 50 ML IV ONE (02:49)
[2023-10-08] MEDS ORDERED: ALLO10TA PO (04:02)
[2023-10-08] MEDS ORDERED: HOME MED LIST COMPLETE! XX SCH (04:05)
[2023-10-08] MEDS ORDERED: MOM 30ML SUSPENSION UDC PO PRN (04:45)
[2023-10-08 08:30] LABS: THYROID STIMULATING HORMONE 3.185 uIU/ML (0.55-4.78)
[2023-10-08] MEDS: allopurinoL 100 MG TAB PO SCH (08:46)
[2023-10-08] MEDS: HEPARIN SOD (PORCINE) 5000UNITS/ML 1ML VIAL/SYRINGE SC SCH (08:49)
[2023-10-08] MEDS ORDERED: ENOXAPARIN 40MG/0.4ML SYRINGE (J1650 PER 10MG) SC SCH (09:00)
[2023-10-08 12:39] VITALS: BP 147/93; TEMP 97.7; O2SAT 97
[2023-10-08 16:00] VITALS: BP 135/81; TEMP 97.8; O2SAT 95
[2023-10-08 18:00] VITALS: BP 134/82; O2SAT 96
[2023-10-08 20:01] VITALS: BP 101/58; TEMP 98.1; O2SAT 96
[2023-10-08] MEDS: ACETAMINOPHEN TAB 650MG DOSE (2X325MG) PO ONE (20:36)
[2023-10-08 22:01] VITALS: BP 119/75; O2SAT 95
[2023-10-08] MEDS: cefTRIAXone SOD 2 GM in D5W MINI-BAG PLUS 50 ML IV SCH (23:57)
[2023-10-09] VITALS (8 sets, daily range): BP systolic 110–129; BP diastolic 72–89; TEMP 97.2–98.4; O2SAT 94–97
[2023-10-09 05:02] LABS: HEMATOCRIT 48.8 % (42.0-52.0); HEMOGLOBIN 16.3 g/dl (13.5-17.5); MEAN CORPUSCULAR HEMOGLOBIN 29.8 pg (27.0-33.0); MEAN CORPUSCULAR HGB CONC 33.4 g/dl (32.0-36.5); MEAN CORPUSCULAR VOLUME 89.2 fl (80.0-96.0); PLATELET COUNT, AUTOMATED 198 10^3/uL (150-450); RED BLOOD COUNT 5.47 10^6/uL (4.30-6.10); WHITE BLOOD COUNT 5.5 10^3/uL (4.0-10.0)
[2023-10-09 05:27] LABS: ALBUMIN 3.7 G/DL (3.2-5.2); ALKALINE PHOSPHATASE 48 U/L (46-116); ALT/SGPT 52 U/L (7.0-40); AST/SGOT 31 U/L (<34); BILIRUBIN,TOTAL 0.5 MG/DL (0.3-1.2); BLOOD UREA NITROGEN 15 MG/DL (9-23); CALCIUM LEVEL 8.9 MG/DL (8.5-10.1); CARBON DIOXIDE LEVEL 24 MMOL/L (20-31); CHLORIDE LEVEL 106 MMOL/L (98-107); CREATININE FOR GFR 0.86 MG/DL (0.70-1.30); GLOMERULAR FILTRATION RATE > 60.0 (>56); GLUCOSE, FASTING 147 MG/DL (60-100); SODIUM LEVEL 138 MMOL/L (136-145); TOTAL PROTEIN 6.7 G/DL (5.7-8.2)
[2023-10-09 12:48] LABS: HEMOGLOBIN A1c 6.8 % (4.0-6.0)
[2023-10-10] VITALS (7 sets, daily range): BP systolic 123–155; BP diastolic 76–89; TEMP 97–97.9; O2SAT 97–98
[2023-10-11 06:13] VITALS: BP 136/80; TEMP 97.5; O2SAT 98
[2023-10-11 06:47] LABS: BASO % 0.5 % (0.0-1.0); EOS # 0.1 10^3/uL (0.0-0.5); EOS % 1.9 % (0.0-3.0); HEMATOCRIT 50.5 % (42.0-52.0); HEMOGLOBIN 17.2 g/dl (13.5-17.5); LYMPH # 2.1 10^3/uL (1.5-5.0); LYMPH % 28.8 % (24.0-44.0); MEAN CORPUSCULAR HEMOGLOBIN 29.7 pg (27.0-33.0); MEAN CORPUSCULAR HGB CONC 34.1 g/dl (32.0-36.5); MEAN CORPUSCULAR VOLUME 87.2 fl (80.0-96.0); MONO # 0.9 10^3/uL (0.0-0.8); MONO % 11.8 % (2.0-8.0); NEUTROPHILS # 4.2 10^3/uL (1.5-8.5); NEUTROPHILS % 56.9 % (36.0-66.0); PLATELET COUNT, AUTOMATED 211 10^3/uL (150-450); RED BLOOD COUNT 5.79 10^6/uL (4.30-6.10); WHITE BLOOD COUNT 7.4 10^3/uL (4.0-10.0)
[2023-10-11 07:21] LABS: BLOOD UREA NITROGEN 16 MG/DL (9-23); CALCIUM LEVEL 9.4 MG/DL (8.5-10.1); CARBON DIOXIDE LEVEL 24 MMOL/L (20-31); CHLORIDE LEVEL 102 MMOL/L (98-107); CREATININE FOR GFR 0.92 MG/DL (0.70-1.30); GLOMERULAR FILTRATION RATE > 60.0 (>56); GLUCOSE, FASTING 137 MG/DL (60-100); POTASSIUM SERUM 4.2 MMOL/L (3.5-5.1); SODIUM LEVEL 136 MMOL/L (136-145)
[2023-10-11 09:08] VITALS: BP 136/78
[2023-10-11 12:00] VITALS: BP 119/79; TEMP 98.1; O2SAT 97
[2023-10-11] MEDS ORDERED: DOXY-440 PO (13:32)
[2023-10-11] MEDS: INDOMETHACIN 25 MG CAP PO ONE (14:03)
[2023-10-13 20:32] LABS: LYME TOTAL ANTIBODY CIA <= 0.90 Index (<=0.90)
== END 2023-10-11 14:54 | disposition home or self-care (01) | DRG 309 ==
LOC: M ED 00:14 → M ED INP 08:05 → M ICU 12:37 → M MSPAV 10-10 17:33
PROVIDERS: ADMIT Internal Medicine Pulmonary Disease; ATTEND Internal Medicine Nephrology
PROC: B246ZZZ Ultrasonography of Right and Left Heart (ICD-10-PCS; principal; 2023-10-08)
DX: I44.2 Atrioventricular block, complete (principal); A69.20 Lyme disease, unspecified; I10 Essential (primary) hypertension; E78.5 Hyperlipidemia, unspecified; M10.9 Gout, unspecified; I95.9 Hypotension, unspecified; R74.01 Elevation of levels of liver transaminase levels; E66.9 Obesity, unspecified; Z79.899 Other long term (current) drug therapy

== ENCOUNTER → 2023-10-11 | Outpatient (CLI) | payer OTHER ==
[~2023-10-11] MED LIST changes: +ALLO10TA PO; +DOXY-323 PO; +DOXY-440 PO; +INDO50CA91 PO
== END ==
LOC: M EKG 15:20
PROVIDERS: ATTEND Internal Medicine Nephrology
DX: I44.2 Atrioventricular block, complete (principal); R00.0 Tachycardia, unspecified

== ENCOUNTER 2023-10-14 12:42 | Day surgery (SDC) | payer OTHER ==
[~2023-10-14] VITALS: Ht 177.8 cm; Wt 108.5 kg
[~2023-10-14 12:42] MED LIST changes: -DOXY-323 PO; -INDO50CA91 PO
[2023-10-14] MEDS ORDERED: INDO50CA91 PO (13:32)
[2023-10-14 13:49] LABS: BASO % 0.5 % (0.0-1.0); EOS # 0.1 10^3/uL (0.0-0.5); EOS % 1.4 % (0.0-3.0); HEMATOCRIT 45.9 % (42.0-52.0); LYMPH # 1.5 10^3/uL (1.5-5.0); LYMPH % 25.8 % (24.0-44.0); MEAN CORPUSCULAR HEMOGLOBIN 30.5 pg (27.0-33.0); MEAN CORPUSCULAR HGB CONC 34.9 g/dl (32.0-36.5); MEAN CORPUSCULAR VOLUME 87.6 fl (80.0-96.0); MONO # 0.7 10^3/uL (0.0-0.8); NEUTROPHILS # 3.6 10^3/uL (1.5-8.5); PLATELET COUNT, AUTOMATED 206 10^3/uL (150-450); RED BLOOD COUNT 5.24 10^6/uL (4.30-6.10); WHITE BLOOD COUNT 5.9 10^3/uL (4.0-10.0)
[2023-10-14 14:08] LABS: INR 1.03; PARTIAL THROMBOPLASTIN TIME 25.6 SECONDS (24.8-34.2); PROTHROMBIN TIME 13.2 SECONDS (12.5-14.5)
[2023-10-14 14:11] LABS: CK-MB VALUE MASS 1.6 NG/ML (<3.6)
[2023-10-14 14:14] LABS: ALBUMIN 4.1 G/DL (3.2-5.2); ALKALINE PHOSPHATASE 46 U/L (46-116); ALT/SGPT 90 U/L (7.0-40); AST/SGOT 54 U/L (<34); BILIRUBIN,DIRECT 0.1 MG/DL (<0.4); BILIRUBIN,TOTAL 0.6 MG/DL (0.3-1.2); BLOOD UREA NITROGEN 14 MG/DL (9-23); CALCIUM LEVEL 9.3 MG/DL (8.5-10.1); CARBON DIOXIDE LEVEL 25 MMOL/L (20-31); CHLORIDE LEVEL 107 MMOL/L (98-107); CREATININE FOR GFR 0.93 MG/DL (0.70-1.30); GLOMERULAR FILTRATION RATE > 60.0 (>56); GLUCOSE, FASTING 122 MG/DL (60-100); MAGNESIUM LEVEL 1.8 MG/DL (1.8-2.4); POTASSIUM SERUM 4.8 MMOL/L (3.5-5.1); SODIUM LEVEL 140 MMOL/L (136-145); TOTAL PROTEIN 7.2 G/DL (5.7-8.2)
[2023-10-14 14:16] LABS: THYROID STIMULATING HORMONE 1.634 uIU/ML (0.55-4.78)
[2023-10-14 14:21] LABS: CPK CREATINE PHOSPHOKINASE 164 U/L (46-171); MB/CK RELATIVE INDEX 0.97 (< OR =4)
[2023-10-14] MEDS ORDERED: DOXY-323 PO (14:39)
[2023-10-14] MEDS ORDERED: HOME MED LIST COMPLETE! XX SCH (14:40)
[2023-10-14] MEDS ORDERED: propofoL 200 MG/20 ML VIAL As Ordered ONE (18:56)
[2023-10-14] MEDS ORDERED: fentaNYL 100 MCG/2 ML INJECTION As Ordered ONE (18:57)
[2023-10-14] MEDS ORDERED: MIDAZOLAM INJ 2MG/2ML VIAL As Ordered ONE (18:57)
[2023-10-14] MEDS: LIDOCAINE 1% SDV 30ML VIAL As Ordered ONE (19:01)
[2023-10-14] MEDS: ceFAZolin 2 GM/D5W 50 ML IV BAG As Ordered ONE (19:31)
[2023-10-14] MEDS ORDERED: LR 1,000 ML IV SCH (20:20)
[2023-10-14] MEDS ORDERED: oxyCODONE 5MG TAB PO PRN (20:20)
[2023-10-14] MEDS ORDERED: ONDANSETRON 4MG 2ML VIAL IV PRN (20:20)
[2023-10-14] MEDS ORDERED: HYDROMORPHONE HCL 0.5 MG/ 0.5 ML SYRINGE IV PRN (20:20)
[2023-10-14] MEDS ORDERED: fentaNYL 100 MCG/2 ML INJECTION IV PRN (20:20)
[2023-10-14 21:25] VITALS: BP 142/89; TEMP 97; O2SAT 98
== END 2023-10-14 21:28 | disposition home or self-care (01) ==
LOC: M ED 12:42 → M SDC 17:17
PROVIDERS: ATTEND Internal Medicine Cardiovascular Disease
DX: I44.2 Atrioventricular block, complete (principal); I45.3 Trifascicular block; G47.33 Obstructive sleep apnea (adult) (pediatric); I10 Essential (primary) hypertension; E66.9 Obesity, unspecified; Z79.899 Other long term (current) drug therapy; M10.9 Gout, unspecified
CPT/HCPCS: 33208; 71045; 76000; 80048; 80076; 82550; 82553; 83735; 84100; 84439; 84443; 84484; 85025; 85610; 85730; 93005; 93041; 94760; C1785; C1898; J0690; J2250; J3010

== ENCOUNTER → 2024-04-22 | Outpatient (REF) | payer OTHER ==
[~2024-04-22] MED LIST changes: +DOXY-441 PO; +INDO50CA91 PO
[2024-04-22 15:30] LABS: ALBUMIN 4.2 G/DL (3.2-5.2); ALKALINE PHOSPHATASE 50 U/L (40-129); ALT/SGPT 34 U/L (7.0-40); AST/SGOT 25 U/L (<34); BILIRUBIN,TOTAL 0.6 MG/DL (0.3-1.2); BLOOD UREA NITROGEN 11 MG/DL (9-23); CALCIUM LEVEL 9.4 MG/DL (8.5-10.1); CARBON DIOXIDE LEVEL 29 MMOL/L (20-31); CHLORIDE LEVEL 105 MMOL/L (98-107); CHOLESTEROL LEVEL 209 MG/DL (<200); CHOLESTEROL RISK RATIO 5.26 (<5); CREATININE FOR GFR 0.89 MG/DL (0.70-1.30); GLOMERULAR FILTRATION RATE > 60.0 (>56); GLUCOSE, FASTING 107 MG/DL (60-100); HDL CHOLESTEROL 39.7 MG/DL (>40); LDL CHOLESTEROL 128.3 MG/DL (<100); NON-HDL-C 169.3 MG/DL; POTASSIUM SERUM 4.6 MMOL/L (3.5-5.1); SODIUM LEVEL 143 MMOL/L (136-145); TOTAL PROTEIN 7.6 G/DL (5.7-8.2); TRIGLYCERIDES LEVEL 205 MG/DL (<150)
[2024-04-22 16:35] LABS: HEMOGLOBIN A1c 5.8 % (4.0-6.0)
== END ==
LOC: M LAB REF 13:03
PROVIDERS: ATTEND Family Medicine Addiction Medicine
DX: E11.9 Type 2 diabetes mellitus without complications (principal)

== ENCOUNTER → 2024-11-30 | Outpatient (REF) | payer OTHER ==
[~2024-11-30] MED LIST changes: -FLOM0.4C39 PO; +TAMS-18 PO
[2024-11-30 15:03] LABS: CREATININE, URINE 219.4 MG/DL
[2024-11-30 15:04] LABS: MALB URINE SIEMENS 11.0 MG/L; MAU/CREAT RATIO 5.0 MCG/MG (0.0-30.0)
[2024-11-30 15:13] LABS: ALT/SGPT 29 U/L (7.0-40); AST/SGOT 29 U/L (<34); CALCIUM LEVEL 8.8 MG/DL (8.3-10.6); CARBON DIOXIDE LEVEL 28 MMOL/L (20-31); CHLORIDE LEVEL 103 MMOL/L (98-107); CHOLESTEROL LEVEL 244 MG/DL (<200); CHOLESTEROL RISK RATIO 7.24 (<5); CREATININE FOR GFR 0.92 MG/DL (0.70-1.30); GLOMERULAR FILTRATION RATE > 90.0 (>49); LDL CHOLESTEROL 157.9 MG/DL (<100); NON-HDL-C 210.3 MG/DL; POTASSIUM SERUM 4.3 MMOL/L (3.5-5.1); SODIUM LEVEL 139 MMOL/L (136-145); TRIGLYCERIDES LEVEL 262 MG/DL (<150)
[2024-11-30 15:41] LABS: ESTIMATED AVERAGE GLUCOSE 123.0 MG/DL (60-110)
== END ==
LOC: M LAB REF 13:58
PROVIDERS: ATTEND Family Medicine Addiction Medicine
DX: E11.9 Type 2 diabetes mellitus without complications (principal)